=== PATIENT | male | born 2000 | race Hispanic/Latino ===

== ENCOUNTER 2022-12-02 06:27 | Emergency (ER) | payer SELFPAY ==
[~2022-12-02] VITALS: Ht 175.3 cm; Wt 70.1 kg
[2022-12-02] MEDS ORDERED: ACETAMINOPHEN 500 MG TAB PO ONE (07:25)
[2022-12-02] MEDS ORDERED: LIDOCAINE 1% MDV 20ML VIAL INFIL ONE (07:25)
[2022-12-02] MEDS ORDERED: BOOSTRIX/ADACEL VACCINE (DIPHTH/PERTUSS/ACELL/TETANUS) 0.5ML SYR IM ONE (07:25)
[2022-12-02] MEDS ORDERED: CEPH500C PO (09:38)
[2022-12-02 09:45] VITALS: BP 119/72
== END 2022-12-02 09:53 | disposition home or self-care (01) ==
LOC: M ED 08:57
DX: S61.210A Laceration without foreign body of right index finger without damage to nail, initial encounter (principal); W23.0XXA Caught, crushed, jammed, or pinched between moving objects, initial encounter; Y92.89 Other specified places as the place of occurrence of the external cause; Y93.89 Activity, other specified; Y99.0 Civilian activity done for income or pay